=== PATIENT | male | born 1965 | race Caucasian/White ===

== ENCOUNTER 2016-11-05 11:50 | Emergency (ER) | payer OTHER ==
[2016-11-05] MEDS ORDERED: CLINDAMYCIN HCL 150 MG CAPSULE PO ONE (12:23)
[2016-11-05] MEDS ORDERED: BUPIVACAINE HCL 0.5 % INJ/PF 30 ML SDV INJ ONE (12:23)
[2016-11-05] MEDS ORDERED: OXYCODONE-ACETAMINOPHEN 5-325 MG TABLET PO ONE (12:23)
[2016-11-05] MEDS ORDERED: ONDANSETRON 4 MG TAB.RAPDIS PO ONE (12:29)
--- NOTE | 2016-11-05 12:30 | ER Document Report ---
HPI - HPI Patient complains to provider of: tooth ache Pain Level: 3 Context: He shouldn't is a 50-year-old male presents emergency room complaining of right tooth pain at 2:30. Patient states that this pain started last evening. Denies any fevers or chills. Denies any foul drainage or odor. Smoker. Has a history of dental abscess on the left side that required tooth extraction by Rohit. Patient states that he has an appointment December 05 with tenderness. - REPRODUCTIVE Reproductive: DENIES: : - DERM Skin Color: Normal Past Medical History - Social History Smoking Status: Current Every Day Smoker Family History: None Patient has suicidal ideation: No Patient has homicidal ideation: No - Past Medical History Cardiac Medical History: Reports: Hx Hypertension Renal/ Medical History: Denies: Hx Peritoneal Dialysis Past Surgical History: Reports: Hx Orthopedic Surgery - finger surgery Vertical Provider Document - CONSTITUTIONAL Agree With Documented VS: Yes Exam Limitations: No Limitations General Appearance: WD/WN, No Apparent Distress - INFECTION CONTROL TRAVEL OUTSIDE OF THE [place] IN LAST 30 DAYS: No - HEENT HEENT: Atraumatic, Normocephalic, PERRLA. negative: Pharyngeal Exudate, Pharyngeal Tenderness, Pharyngeal Erythema, Tympanic Membrane Red, Tympanic Membrane Bulging Mouth Diagram: 1 - Pain, evidence of mild drainage at the base of the tooth, abscess. Notes: No evidence of retropharyngeal or peritonsillar abscess - NECK Neck: Normal Inspection, Other - No evidence of Daniel angina - RESPIRATORY Respiratory: Breath Sounds Normal, No Respiratory Distress, Chest Non-Tender. negative: Rales, Rhonchi, Wheezing O2 Sat by Pulse Oximetry: 98 - CARDIOVASCULAR Cardiovascular: Regular Rate, Regular Rhythm, No Murmur Course - Re-evaluation Re-evalutation: 11/05/16 12:27 Patient is a 50-year-old male presents with dental abscess last night. Patient received 5 mL of Sensorcaine dental block with resolution of his symptoms. Abscess was drained using an 18-gauge needle with aspiration of 3cc of pus. Initiated on clindamycin given patient's allergy to penicillin and Bactrim. d/ w him indications to follow up with a dentist in 10 days. - Vital Signs Vital signs: Temp Pulse Resp BP Pulse Ox 98.2 F 76 18 161/95 H 98 11/05/16 11:56 11/05/16 11:56 11/05/16 11:56 11/05/16 11:56 11/05/16 11:56 Discharge - Discharge Clinical Impression: Toothache Condition: Good Disposition: HOME, SELF-CARE Instructions: Toothache (OM), Clindamycin (OM), Oral Narcotic Medication ([facility] ), [facility] Additional Instructions: [facility] [address] [place], [place] Tuesday mornings, by appointment [facility] [address] [place] [address] [facility] [place] [address] [facility] [address] [facility] [address] [email or web address] [address] [place] [address] Tuesday- 8:00am to 5:00 pm Will see patients from other [facility]. Charges based on income and family size and accepts Medicare, Medicaid, and Insurances Will pull molars [facility] [id number] Hours of Operation 8:00 am - 4:30 pm weekdays The following dental offices accept Medicaid: [facility] Dr. Ma Dr. Pisano Dr. Sena Dr. Archibald Pablo Rosa Lutsavage, and [facility] Dr. Banuelos ([place]) Dr. Valle ([place]) [facility] Drs. Larry and Jose Rafael ([place]) Dr. Cornell ([place]) [facility] Dr. Yen ([place]) Drs. Leyva and ([place]) Medicaid Care Line Prescriptions: Oxycodone HCl/Acetaminophen [Percocet 5-325 mg Tablet] 1 tab PO Q4HP PRN #15 tab PRN Reason: Clindamycin HCl 300 mg PO TID 10 Days Ondansetron HCl [Zofran 4 mg Tablet] 1 - 2 tab PO Q4H PRN #10 tablet PRN Reason: Forms: Elevated Blood Pressure, Return to Work Referrals: [facility] [NO LOCAL MD] - Follow up as needed
[2016-11-05 13:15] VITALS: BP 158/87
== END 2016-11-05 13:16 | disposition home or self-care (01) ==
LOC: ER 11:50
DX: K08.9 Disorder of teeth and supporting structures, unspecified (principal); F17.200 Nicotine dependence, unspecified, uncomplicated
CPT/HCPCS: 99282; S0119

== ENCOUNTER 2017-01-09 23:30 | Emergency (ER) | payer OTHER ==
[2017-01-10] MEDS ORDERED: LIDOCAINE 1% INJ-PF (10 MG/ML) 30 ML SDV INJ ONE (00:56)
[2017-01-10] MEDS ORDERED: CEFTRIAXONE INJ 1000 MG VIAL IV ONE (00:57)
[2017-01-10] MEDS ORDERED: NORMAL SALINE 1000 ML 1,000 ML IV ONE (00:58)
[2017-01-10] MEDS ORDERED: ACETAMINOPHEN 325 MG TABLET PO ONE (00:58)
--- NOTE | 2017-01-10 01:04 | ER Document Report ---
ED General - General Chief Complaint: Nausea/Vomiting Stated Complaint: BODY PAIN,NAUSEA Time Seen by Provider: 01/10/17 00:46 Notes: Patient is a 51-year-old male who presents with complaint of fever and some body aches. Some nausea. Vomiting. No diarrhea. Patient's is recent diagnosed with meningitis proximally 6 days ago. He is told if he ever developed a fever to come to the ER immediately. I did review her CSF cultures and it did not grow anything. She was eventually transferred to [facility]. She is currently there. And says that she has been diagnosed with a blood infection as well as a "brain infection. The exact source is not clear at this time. She is due to undergo an echocardiogram here soon. Patient denies any headache. No neck pain. No neck stiffness. He says he is sick because of eating what his neighbor cooks yesterday but he is 100% sure. He did not take any Tylenol or Motrin prior to arrival. He is not on blood thinners. He has no other complaints at this time. TRAVEL OUTSIDE OF THE [place] IN LAST 30 DAYS: No - Related Data Allergies/Adverse Reactions: Penicillins Allergy (Mild, Verified 07/14/16 10:34) Sulfa (Sulfonamide Antibiotics) Allergy (Mild, Verified 07/14/16 10:34) sulfamethoxazole [From Bactrim] Allergy (Verified 07/14/16 10:34) trimethoprim [From Bactrim] Allergy (Verified 07/14/16 10:34) Past Medical History - Social History Smoking Status: Never Smoker Frequency of alcohol use: None Drug Abuse: None Family History: None - Past Medical History Cardiac Medical History: Reports: Hx Hypertension Renal/ Medical History: Denies: Hx Peritoneal Dialysis Past Surgical History: Reports: Hx Orthopedic Surgery - finger surgery Review of Systems - Review of Systems Notes: My Normal Review Basic REVIEW OF SYSTEMS: CONSTITUTIONAL :fever EENT: Denies eye, ear, throat, or mouth pain or symptoms. Denies nasal or sinus congestion. CARDIOVASCULAR: Denies chest pain. RESPIRATORY: Denies cough, cold, or chest congestion. Denies shortness of breath, difficulty breathing, or wheezing. GASTROINTESTINAL: Denies abdominal pain. vomiting x1. Denies constipation. Last BM: GENITOURINARY: Denies difficulty urinating, painful urination, burning, frequency, or blood in urine. MUSCULOSKELETAL: Denies neck or back pain or joint pain or swelling. SKIN: Denies rash or skin lesions. HEMATOLOGIC : Denies easy bruising or bleeding. NEUROLOGICAL: Denies altered mental status or loss of consciousness. Denies headache. Denies weakness or paralysis or loss of use of either side. Denies problems with gait or speech. Denies sensory or motor loss. ALL OTHER SYSTEMS REVIEWED AND NEGATIVE. Physical Exam - Vital signs Vitals: Temp Pulse Resp BP Pulse Ox 101.0 F H 107 H 21 H 165/88 H 96 01/09/17 23:48 01/09/17 23:48 01/09/17 23:48 01/09/17 23:48 01/09/17 23:48 - Notes Notes: General Appearance: Well nourished, alert, cooperative, no acute distress, no obvious discomfort. Vitals: reviewed, See vital signs table. Head: no swelling or tenderness to the head Eyes: PERRL, EOMI, Conjuctiva clear Mouth: No decreasd moisture Throat: No tonsillar inflammation, No airway obstruction, No lymphadenopathy Neck: Supple, no neck tenderness, No thyromegaly Lungs: No wheezing, No rales, No rhonci, No accessory muscle use, good air exchange bilaterally. Heart: Normal rate, Regular rythm, No murmur, no rub Abdomen: Normal BS, soft, No rigidity, No abdominal tenderness, No guarding, no rebound, no abdominal masses, no organomegaly Extremities: strength 5/5 in all extremities, good pulses in all extremities, no swelling or tenderness in the extremities, no edema. Skin: warm, dry, appropriate color, no rash Neuro: speech clear, oriented x 3, normal affect, responds appropriately to questions. Course - Vital Signs Vital signs: Temp Pulse Resp BP Pulse Ox 98.0 F 68 18 132/60 H 97 01/10/17 04:26 01/10/17 04:26 01/10/17 04:26 01/10/17 04:26 01/10/17 04:26 - Laboratory Result Diagrams: 01/10/17 01:10 01/10/17 01:47 Laboratory results interpreted by me: 01/10/17 01/10/17 01:10 01:10 WBC 13.5 H Seg Neuts % (Manual) 88 H Lymphocytes % (Manual) 2 L Abs Neuts (Manual) 12.3 H Abs Lymphs (Manual) 0.3 L Lactic Acid 2.8 H - Transfer of Care Notes: 01/10/17 05:08 Patient's fever is intermittent. When he has a fever is very sweaty and looks unwell. When fever is gone he looks improved. Lactic acid is elevated. Currently do not have a source for the fever. I did do a lumbar puncture being that his was recently diagnosed with meningitis. Fortunately his lumbar puncture is negative. My concern is that the patient's does have bacteremia which they think led to the meningitis. At this time I think is appropriate to admit him for observation to make sure his blood cultures did not grow out any significant bacteremia to make sure that he continues to improve. I did speak with the hospitalist request we also start him on doxycycline and send Byers spotted fever titers. He denies recent tick bite. He is agreeable to this. Patient's chest x-ray is negative. Dictation of this chart was performed using voice recognition software; therefore, there may be some unintended grammatical errors. Procedures - Lumbar Puncture Lumbar puncture Consent obtained: Yes Patient position: Sitting Needle size: 22 Lumbar puncture location: L3, L4 Anesthetic type: 1% Lidocaine mL's of anesthetic: 4 Amount/type of drainage: clear 7mls Number of attempts: 1 Complications: No Discharge - Discharge Clinical Impression: Elevated lactic acid level Fever Qualifiers: Fever type: unspecified Qualified Code(s): R50.9 - Fever, unspecified Condition: Stable Disposition: ADMITTED OBSERVATION Admitting Provider: Hospitalist Unit Admitted: Telemetry
[2017-01-10 01:35] LABS: HEMATOCRIT 46.4 % (37.9-51.0); HEMOGLOBIN 15.1 g/dL (13.5-17.0); HGB HCT DIFFERENCE -1.1; MEAN CORPUSCULAR HGB CONC 32.5 g/dL (32.0-36.0); MEAN CORPUSCULAR VOLUME 86 fl (80-97); RED BLOOD COUNT 5.39 10^6/uL (4.35-5.55); RED CELL DISTRIBUTION WIDTH 13.5 % (11.5-14.0); WHITE BLOOD COUNT 13.5 10^3/uL (4.0-10.5)
[2017-01-10 02:00] LABS: BAND NEUTROPHILS % (MANUAL) 3 % (3-5); BASOPHILS % (MANUAL) 1 % (0-2); EOSINOPHILS % (MANUAL) 1 % (0-6); LYMPHOCYTES % (MANUAL) 2 % (13-45); TOTAL CELLS COUNTED 100
[2017-01-10 02:01] LABS: TOXIC GRANULATION SLIGHT
[2017-01-10 02:12] LABS: RBC MORPHOLOGY COMMENT NORMO-CYTIC/CHROMIC
[2017-01-10 02:14] LABS: ALANINE AMINOTRANSFERASE 54 U/L (21-72); ALBUMIN 4.3 g/dL (3.5-5.0); ALKALINE PHOSPHATASE 67 U/L (38-126); ANION GAP 13 (5-19); ASPARTATE AMINO TRANSFERASE 37 U/L (17-59); BILIRUBIN,DIRECT 0.3 mg/dL (0.0-0.4); BILIRUBIN,TOTAL 0.5 mg/dL (0.2-1.3); BLOOD UREA NITROGEN 15 mg/dL (7-20); CALCIUM 9.3 mg/dL (8.4-10.2); CARBON DIOXIDE 22 mmol/L (22-30); CHLORIDE 106 mmol/L (98-107); CREATININE RESULT 0.89 mg/dL (0.52-1.25); GLUCOSE 106 mg/dL (75-110); POTASSIUM 4.2 mmol/L (3.6-5.0); SODIUM 140.8 mmol/L (137-145)
--- NOTE | 2017-01-10 02:25 | RADIOLOGY REPORT (SQ) ---
EXAM DESCRIPTION: CHEST SINGLE VIEW COMPLETED DATE/TIME: 01/10/2017 2:10 am REASON FOR STUDY: fever COMPARISON: 3.9.16 EXAM PARAMETERS: NUMBER OF VIEWS: One view. TECHNIQUE: Single frontal radiographic view of the chest acquired. RADIATION DOSE: NA LIMITATIONS: None. FINDINGS: LUNGS AND PLEURA: No opacities, masses or pneumothorax. No pleural effusion. Mild interst itial markings. MEDIASTINUM AND HILAR STRUCTURES: No masses. Contour normal. HEART AND VASCULAR STRUCTURES: Heart normal in size. Normal vasculature. BONES: No acute findings. HARDWARE: None in the chest. OTHER: No other significant finding. IMPRESSION: NO ACUTE RADIOGRAPHIC FINDING IN THE CHEST. TECHNICAL DOCUMENTATION: JOB ID: [id number]
[2017-01-10 03:05] LABS: GLUCOSE,CSF 69 mg/dL (40-70)
[2017-01-10 03:15] LABS: APPEARANCE ALL TUBES CLEAR; RBC DILUENT USED NONE USED; RBC DILUTION FACTOR 1; RBC SIDE 1 0; RBC SIDE 2 0; TOTAL RBC SQUARES COUNTED 225
[2017-01-10 03:16] LABS: WHITE BLOOD CELL,CSF 2 /uL (0-5)
[2017-01-10 05:05] LABS: APPEARANCE,URINE CLEAR; BILIRUBIN,URINE NEGATIVE (NEGATIVE); GLUCOSE, URINE NEGATIVE (NEGATIVE); KETONES,URINE NEGATIVE (NEGATIVE); LEUKOCYTE ESTERASE,URINE NEGATIVE (NEGATIVE); NITRITE,URINE NEGATIVE (NEGATIVE); PROTEIN,URINE NEGATIVE (NEGATIVE); UROBILINOGEN,URINE NEGATIVE mg/dL (<2.0)
[2017-01-10] MEDS ORDERED: ONDANSETRON HCL INJ/PF 4 MG/2 ML SDV IV ONE (07:04)
[2017-01-10] MEDS ORDERED: ONDANSETRON HCL INJ/PF 4 MG/2 ML SDV IV PRN (07:41)
[2017-01-10] MEDS ORDERED: NORMAL SALINE 1000 ML 1,000 ML IV PRN (07:41)
[2017-01-10] MEDS ORDERED: ACETAMINOPHEN 325 MG TABLET PO PRN (07:41)
[2017-01-10 09:04] VITALS: BP 155/69
[2017-01-10] MEDS ORDERED: LEVOFLOXACIN 750 MG/D5W RTU 150 ML IV SCH (10:00)
[2017-01-10] MEDS ORDERED: ENOXAPARIN SODIUM INJ 40 MG/0.4 ML DISP.SYRIN SUBCUT SCH (10:00)
[2017-01-10] MEDS ORDERED: CEFTRIAXONE 1 GM/D5W RTU 50 ML IV SCH (10:00)
--- NOTE | 2017-01-10 12:44 | H&P/Discharge Summary ---
Discharge Summary Admission Date/PCP: 01/10/2017/[facility] Discharge Date: 01/10/17 Resuscitation Status: Full Code - Discharge Diagnosis (1) Fever Is this a current diagnosis for this admission?: Yes (2) Hypertension Is this a current diagnosis for this admission?: Yes Allergies/Adverse Reactions: Penicillins Allergy (Mild, Verified 07/14/16 10:34) Sulfa (Sulfonamide Antibiotics) Allergy (Mild, Verified 07/14/16 10:34) sulfamethoxazole [From Bactrim] Allergy (Verified 07/14/16 10:34) trimethoprim [From Bactrim] Allergy (Verified 07/14/16 10:34) Discharge Diet: Regular Discharge Activity: Activity As Tolerated History of Present Illness Patient complains of: Fever History of Present Illness: ROULA ZELAYA is a 51 year old male presents to the emergency department with fever. He was concerned about the fever since his has been recently diagnosed with meningitis. Since having negative lumbar puncture in the emergency department he is no longer concerned and request to be discharged from the emergency department as soon as I walked in the room to evaluate him. Patient states that he has been feeling nauseous since eating undercooked food yesterday and he thinks he may just have "food poisoning". He denies abdominal pain, vomiting, cough, shortness of breath, headache, photophobia. He is requesting a note to go back to work tomorrow. I advised him that I would like to treat him with empiric antibiotic course for fever. He stated he did not want a prescription for Levaquin because this was too expensive and he had no insurance. He is allergic to penicillin and sulfa medication. He was given prescription for doxycycline. Past Medical History Cardiac Medical History: Reports: Hypertension Past Surgical History Past Surgical History: Reports: Orthopedic Surgery - finger surgery Social History Information Source: Patient Lives with: Family Smoking Status: Never Smoker Frequency of Alcohol Use: None Hx Recreational Drug Use: No Hx Prescription Drug Abuse: No - Advance Directive Resuscitation Status: Full Code Family History Family History: None Parental Family History Reviewed: Yes Children Family History Reviewed: Yes Sibling(s) Family History Reviewed.: Yes Review of Systems Constitutional: PRESENT: chills, fatigue, fever(s). ABSENT: headache(s), weight gain, weight loss Eyes: ABSENT: visual disturbances Ears: ABSENT: hearing changes Cardiovascular: ABSENT: chest pain, dyspnea on exertion, edema, orthropnea, palpitations Respiratory: ABSENT: cough, hemoptysis Gastrointestinal: PRESENT: nausea. ABSENT: abdominal pain, constipation, diarrhea, hematemesis, hematochezia, vomiting Genitourinary: ABSENT: dysuria, hematuria Musculoskeletal: ABSENT: joint swelling Integumentary: ABSENT: rash, wounds Neurological: ABSENT: abnormal gait, abnormal speech, confusion, dizziness, focal weakness, syncope Psychiatric: ABSENT: anxiety, depression, homidical ideation, suicidal ideation Endocrine: ABSENT: cold intolerance, heat intolerance, polydipsia, polyuria Hematologic/Lymphatic: ABSENT: easy bleeding, easy bruising Physical Exam Vital Signs: Temp Pulse Resp BP Pulse Ox 102.2 F H 77 18 155/69 H 94 01/10/17 09:03 01/10/17 09:03 01/10/17 09:03 01/10/17 09:03 01/10/17 09:03 Intake & Output 01/09/17 01/10/17 01/11/17 06:59 06:59 06:59 Weight 107.7 kg PHYSICAL EXAM: GENERAL: Appears well, no acute distress HEENT: Normocephalic, no scleral icterus, conjunctiva clear, EOEM intact, PERRLA , moist mucous membranes NECK: trachea midline, no thyromegally RESPIRATORY: Clear to auscultation, no wheezes/rhonchi CARDIAC: Regular rate and rhythm, no murmur/aracelis/rub ABDOMEN: Soft, no distension, no tenderness, no guarding, normal bowel sounds, negative Rizzo sign RECTAL: deferred : deferred EXTREMITIES: No edema, cyanosis, clubbing MUSCULOSKELETAL: No joint swelling or deformity VASCULAR: normal peripheral pulses NEUROLOGIC: Alert, oriented to person/place/time, normal speech, cranial nerves grossly intact, 5/5 strength in all extremities, tactile sensation intact in all extremities SKIN: No rash, no wounds, no worrisome skin lesions PSYCHIATRIC: Normal mood, normal affect Results Laboratory Results: 01/10/17 01:10 01/10/17 01:47 01/10/17 01/10/17 01/10/17 01:10 01:10 01:10 WBC 13.5 H RBC 5.39 Hgb 15.1 Hct 46.4 MCV 86 MCH 28.0 MCHC 32.5 RDW 13.5 Plt Count 166 Seg Neutrophils % Not Reportable Lymphocytes % Not Reportable Monocytes % Not Reportable Eosinophils % Not Reportable Basophils % Not Reportable Absolute Neutrophils Not Reportable Absolute Lymphocytes Not Reportable Absolute Monocytes Not Reportable Absolute Eosinophils Not Reportable Absolute Basophils Not Reportable Sodium Cancelled Potassium Cancelled Chloride Cancelled Carbon Dioxide Cancelled Anion Gap Cancelled BUN Cancelled Creatinine Cancelled Est GFR ( Amer) Cancelled Est GFR (Non-Af Amer) Cancelled Glucose Cancelled Lactic Acid 2.8 H Calcium Cancelled Total Bilirubin Cancelled AST Cancelled ALT Cancelled Alkaline Phosphatase Cancelled Total Protein Cancelled Albumin Cancelled Urine Color Urine Appearance Urine pH Ur Specific [place]ba Urine Protein Urine Glucose (UA) Urine Ketones Urine Blood Urine Nitrite Ur Leukocyte Esterase Urine WBC (Auto) Urine RBC (Auto) Fluid Tube Number CSF Volume CSF Appearance CSF Color CSF WBC CSF RBC CSF Glucose CSF Total Protein 01/10/17 01/10/17 01/10/17 01:47 02:24 02:24 WBC RBC Hgb Hct MCV MCH MCHC RDW Plt Count Seg Neutrophils % Lymphocytes % Monocytes % Eosinophils % Basophils % Absolute Neutrophils Absolute Lymphocytes Absolute Monocytes Absolute Eosinophils Absolute Basophils Sodium 140.8 Potassium 4.2 Chloride 106 Carbon Dioxide 22 Anion Gap 13 BUN 15 Creatinine 0.89 Est GFR ( Amer) > 60 Est GFR (Non-Af Amer) > 60 Glucose 106 Lactic Acid Calcium 9.3 Total Bilirubin 0.5 AST 37 ALT 54 Alkaline Phosphatase 67 Total Protein 7.0 Albumin 4.3 Urine Color Urine Appearance Urine pH Ur Specific [place] Urine Protein Urine Glucose (UA) Urine Ketones Urine Blood Urine Nitrite Ur Leukocyte Esterase Urine WBC (Auto) Urine RBC (Auto) Fluid Tube Number 4 CSF Volume 5.0 CSF Appearance CLEAR CSF Color COLORLESS CSF WBC 2 CSF RBC 0 CSF Glucose 69 CSF Total Protein 49 01/10/17 01/10/17 04:15 05:30 WBC RBC Hgb Hct MCV MCH MCHC RDW Plt Count Seg Neutrophils % Lymphocytes % Monocytes % Eosinophils % Basophils % Absolute Neutrophils Absolute Lymphocytes Absolute Monocytes Absolute Eosinophils Absolute Basophils Sodium Potassium Chloride Carbon Dioxide Anion Gap BUN Creatinine Est GFR ( Amer) Est GFR (Non-Af Amer) Glucose Lactic Acid 2.5 H Calcium Total Bilirubin AST ALT Alkaline Phosphatase Total Protein Albumin Urine Color YELLOW Urine Appearance CLEAR Urine pH 7.0 Ur Specific [place]ba 1.020 Urine Protein NEGATIVE Urine Glucose (UA) NEGATIVE Urine Ketones NEGATIVE Urine Blood NEGATIVE Urine Nitrite NEGATIVE Ur Leukocyte Esterase NEGATIVE Urine WBC (Auto) 1 Urine RBC (Auto) 0 Fluid Tube Number CSF Volume CSF Appearance CSF Color CSF WBC CSF RBC CSF Glucose CSF Total Protein Labs- Last Values WBC 13.5 10^3/uL (4.0-10.5) H 01/10/17 01:10 RBC 5.39 10^6/uL (4.35-5.55) 01/10/17 01:10 Hgb 15.1 g/dL (13.5-17.0) 01/10/17 01:10 Hct 46.4 % (37.9-51.0) 01/10/17 01:10 MCV 86 fl (80-97) 01/10/17 01:10 MCH 28.0 pg (27.0-33.4) 01/10/17 01:10 MCHC 32.5 g/dL (32.0-36.0) 01/10/17 01:10 RDW 13.5 % (11.5-14.0) 01/10/17 01:10 Plt Count 166 10^3/uL (150-450) 01/10/17 01:10 Total Counted 100 01/10/17 01:10 Seg Neutrophils % Not Reportable 01/10/17 01:10 Seg Neuts % (Manual) 88 % (42-78) H 01/10/17 01:10 Band Neutrophils % 3 % (3-5) 01/10/17 01:10 Lymphocytes % Not Reportable 01/10/17 01:10 Lymphocytes % (Manual) 2 % (13-45) L 01/10/17 01:10 Monocytes % Not Reportable 01/10/17 01:10 Monocytes % (Manual) 5 % (3-13) 01/10/17 01:10 Eosinophils % Not Reportable 01/10/17 01:10 Eosinophils % (Manual) 1 % (0-6) 01/10/17 01:10 Basophils % Not Reportable 01/10/17 01:10 Basophils % (Manual) 1 % (0-2) 01/10/17 01:10 Absolute Neutrophils Not Reportable 01/10/17 01:10 Abs Neuts (Manual) 12.3 10^3/uL (1.7-8.2) H 01/10/17 01:10 Absolute Lymphocytes Not Reportable 01/10/17 01:10 Abs Lymphs (Manual) 0.3 10^3/uL (0.5-4.7) L 01/10/17 01:10 Absolute Monocytes Not Reportable 01/10/17 01:10 Abs Monocytes (Manual) 0.7 10^3/uL (0.1-1.4) 01/10/17 01:10 Absolute Eosinophils Not Reportable 01/10/17 01:10 Absolute Eos (Manual) 0.1 10^3/uL (0.0-0.6) 01/10/17 01:10 Absolute Basophils Not Reportable 01/10/17 01:10 Abs Basophils (Manual) 0.1 10^3/uL (0.0-0.2) 01/10/17 01:10 Toxic Granulation SLIGHT 01/10/17 01:10 Platelet Comment ADEQUATE 01/10/17 01:10 RBC Morph Comment NORMO-CYTIC/CHROMIC 01/10/17 01:10 Sodium 140.8 mmol/L (137-145) 01/10/17 01:47 Potassium 4.2 mmol/L (3.6-5.0) 01/10/17 01:47 Chloride 106 mmol/L (98-107) 01/10/17 01:47 Carbon Dioxide 22 mmol/L (22-30) 01/10/17 01:47 Anion Gap 13 (5-19) 01/10/17 01:47 BUN 15 mg/dL (7-20) 01/10/17 01:47 Creatinine 0.89 mg/dL (0.52-1.25) 01/10/17 01:47 Est GFR ( Amer) > 60 (>60) 01/10/17 01:47 Est GFR (Non-Af Amer) > 60 (>60) 01/10/17 01:47 Glucose 106 mg/dL (75-110) 01/10/17 01:47 Lactic Acid 2.5 mmol/L (0.7-2.1) H 01/10/17 05:30 Calcium 9.3 mg/dL (8.4-10.2) 01/10/17 01:47 Total Bilirubin 0.5 mg/dL (0.2-1.3) 01/10/17 01:47 Direct Bilirubin 0.3 mg/dL (0.0-0.4) 01/10/17 01:47 Indirect Bilirubin Not Reportable 01/10/17 01:47 Neonat Total Bilirubin Not Reportable 01/10/17 01:47 AST 37 U/L (17-59) 01/10/17 01:47 ALT 54 U/L (21-72) 01/10/17 01:47 Alkaline Phosphatase 67 U/L (38-126) 01/10/17 01:47 Total Protein 7.0 g/dL (6.3-8.2) 01/10/17 01:47 Albumin 4.3 g/dL (3.5-5.0) 01/10/17 01:47 Urine Color YELLOW 01/10/17 04:15 Urine Appearance CLEAR 01/10/17 04:15 Urine pH 7.0 (5.0-9.0) 01/10/17 04:15 Ur Specific Elba 1.020 01/10/17 04:15 Urine Protein NEGATIVE mg/dL (NEGATIVE) 01/10/17 04:15 Urine Glucose (UA) NEGATIVE mg/dL (NEGATIVE) 01/10/17 04:15 Urine Ketones NEGATIVE mg/dL (NEGATIVE) 01/10/17 04:15 Urine Blood NEGATIVE (NEGATIVE) 01/10/17 04:15 Urine Nitrite NEGATIVE (NEGATIVE) 01/10/17 04:15 Urine Bilirubin NEGATIVE (NEGATIVE) 01/10/17 04:15 Urine Urobilinogen NEGATIVE mg/dL (<2.0) 01/10/17 04:15 Ur Leukocyte Esterase NEGATIVE (NEGATIVE) 01/10/17 04:15 Urine WBC (Auto) 1 /HPF 01/10/17 04:15 Urine RBC (Auto) 0 /HPF 01/10/17 04:15 Squamous Epi Cells Auto <1 /HPF 01/10/17 04:15 Urine Mucus (Auto) RARE /LPF 01/10/17 04:15 Urine Ascorbic Acid NEGATIVE (NEGATIVE) 01/10/17 04:15 Fluid Tube Number 4 01/10/17 02:24 CSF Volume 5.0 CC 01/10/17 02:24 CSF Appearance CLEAR 01/10/17 02:24 CSF Color COLORLESS 01/10/17 02:24 CSF WBC 2 /uL (0-5) 01/10/17 02:24 CSF RBC 0 /uL (0-800) 01/10/17 02:24 CSF Glucose 69 mg/dL (40-70) 01/10/17 02:24 CSF Total Protein 49 mg/dL (12-60) 01/10/17 02:24 Impressions: Chest X-Ray 01/10/17 00:46 IMPRESSION: NO ACUTE RADIOGRAPHIC FINDING IN THE CHEST. Qualifiers PATEINT BEING DISCHARGED WITH ANY OF THE FOLLOWING DIAGNOSIS?: No Assessment & Plan - Time Time Spent: 50 to 70 Minutes Anticipated dischagre: Home
[2017-01-12 07:27] LABS: ROCKY MTN SPOTTED FEV IGG EIA Negative (Negative)
== END 2017-01-10 09:02 | disposition admitted as inpatient to this hospital (09) ==
LOC: ER 23:30 → UNDOADMOB 01-10 06:12 → EH 01-10 06:12 → OBSVTOIN 01-10 07:41 → INTOOBSV 01-10 07:41 → UNDODISIN 01-10 08:40
PROC: 009U3ZX Drainage of Spinal Canal, Percutaneous Approach, Diagnostic (ICD-10-PCS; principal; 2017-01-09)
DX: R50.9 Fever, unspecified (principal); R11.2 Nausea with vomiting, unspecified; R74.0 Nonspecific elevation of levels of transaminase and lactic acid dehydrogenase [LDH]; I10 Essential (primary) hypertension; Z20.9 Contact with and (suspected) exposure to unspecified communicable disease; Z88.0 Allergy status to penicillin; Z88.2 Allergy status to sulfonamides; Z88.1 Allergy status to other antibiotic agents
CPT/HCPCS: 99283; 96365; 36415; 87040; 87070; 87086; 87205; 85025; 89050; 82945; 84157; 87077; 80053; 81001; 86757 ×2; 87186; 83605; 71010; 62270; J3490; J0696; J2405; J7030

== ENCOUNTER 2017-12-09 16:28 | Emergency (ER) | payer SELFPAY ==
[2017-12-09 16:48] VITALS: BP 153/78
[2017-12-09] MEDS ORDERED: ACETAMINOPHEN 325 MG TABLET PO ONE (17:21)
--- NOTE | 2017-12-09 17:23 | ER Document Report ---
ED Medical Screen (RME) - General Chief Complaint: Insect Bite Stated Complaint: POSSIBLE BUG BITE Time Seen by Provider: 12/09/17 17:18 Notes: RAPID MEDICAL EVALUATION DISCLOSURE I have seen this patient as part of a Rapid Medical Evaluation and, if applicable, placed any initially appropriate orders. The patient will be seen and fully evaluated, including a full history and physical exam, by a provider ( in Main ED or Fast Track) when a room becomes available. 52-year-old male here with complaints of a bug bite to his right upper extremity 2 days ago that has progressively worsened with respect to size and redness of the skin. Has not taken anything for the symptoms. No fevers or chills. EXAM Erythema to just proximal of the antecubital fossa Small punctate wound in the middle of the erythema TRAVEL OUTSIDE OF THE [place] IN LAST 30 DAYS: No - Related Data Allergies/Adverse Reactions: Penicillins Allergy (Mild, Verified 12/09/17 16:30) Sulfa (Sulfonamide Antibiotics) Allergy (Mild, Verified 12/09/17 16:30) sulfamethoxazole [From Bactrim] Allergy (Verified 12/09/17 16:30) trimethoprim [From Bactrim] Allergy (Verified 12/09/17 16:30) Past Medical History - Social History Chew tobacco use (# tins/day): No Frequency of alcohol use: Occasional Drug Abuse: None - Past Medical History Cardiac Medical History: Reports: Hx Hypertension Renal/ Medical History: Denies: Hx Peritoneal Dialysis Past Surgical History: Reports: Hx Orthopedic Surgery - finger surgery Physical Exam - Vital signs Vitals: Temp Pulse Resp BP Pulse Ox 98 F 73 18 153/78 H 97 12/09/17 16:46 12/09/17 16:46 12/09/17 16:46 12/09/17 16:46 12/09/17 16:46 Course - Vital Signs Vital signs: Temp Pulse Resp BP Pulse Ox 98 F 73 18 153/78 H 97 12/09/17 16:46 12/09/17 16:46 12/09/17 16:46 12/09/17 16:46 12/09/17 16:46
[2017-12-09] MEDS ORDERED: CLINDAMYCIN HCL 150 MG CAPSULE PO ONE (18:22)
--- NOTE | 2017-12-09 18:28 | ER Document Report ---
ED Skin Rash/Insect Bite/Abscs - General Chief Complaint: Insect Bite Stated Complaint: POSSIBLE BUG BITE Time Seen by Provider: 12/09/17 17:18 Mode of Arrival: Ambulatory Information source: Patient Notes: 52-year-old male in the ED for complaint of a bug bite to his right upper extremity 2 days ago that is become progressively worse more red and tender. He denies any fevers or chills. He states that his boss cut it with a razor superficially. There is no signs of infection to the actual razor cut. TRAVEL OUTSIDE OF THE [place] IN LAST 30 DAYS: No - HPI Patient complains to provider of: Tender/swollen area - 2 days Onset: Other Onset/Duration: Gradual - 2 days ago Quality of pain: Pressure Severity: Moderate Pain Level: 2 Skin Character: Erythema, Swelling, Tenderness Quality of rash: Itchy Identify cause: Yes - States a bug bite Exacerbated by: Movement Relieved by: Denies Similar symptoms previously: No Recently seen / treated by doctor: No - Related Data Allergies/Adverse Reactions: Penicillins Allergy (Mild, Verified 12/09/17 16:30) Sulfa (Sulfonamide Antibiotics) Allergy (Mild, Verified 12/09/17 16:30) sulfamethoxazole [From Bactrim] Allergy (Verified 12/09/17 16:30) trimethoprim [From Bactrim] Allergy (Verified 12/09/17 16:30) Past Medical History - General Information source: Patient - Social History Smoking Status: Current Every Day Smoker Cigarette use (# per day): Yes - Half pack a day Chew tobacco use (# tins/day): No Smoking Education Provided: Yes - 4 minutes Frequency of alcohol use: Occasional Drug Abuse: None Occupation: Maintenance Lives with: Family Family History: None Patient has suicidal ideation: No Patient has homicidal ideation: No - Past Medical History Cardiac Medical History: Reports: Hx Hypertension Pulmonary Medical History: Reports: None EENT Medical History: Reports: None Neurological Medical History: Reports: None Endocrine Medical History: Reports: None Renal/ Medical History: Reports: None Malignancy Medical History: Reports None GI Medical History: Reports: None Musculoskeltal Medical History: Reports Hx Musculoskeletal Trauma - Amputation of the tip of his finger by a printing press Skin Medical History: Reports None Psychiatric Medical History: Reports: None Traumatic Medical History: Reports: None Infectious Medical History: Reports: None Past Surgical History: Reports: Hx Orthopedic Surgery - finger surgery Review of Systems - Review of Systems Constitutional: No symptoms reported EENT: No symptoms reported Cardiovascular: No symptoms reported Respiratory: No symptoms reported Gastrointestinal: No symptoms reported Genitourinary: No symptoms reported Male Genitourinary: No symptoms reported Musculoskeletal: No symptoms reported Skin: Other - Cellulitis to an insect bite to the right upper arm Hematologic/Lymphatic: No symptoms reported Neurological/Psychological: No symptoms reported -: Yes All other systems reviewed and negative Physical Exam - Vital signs Vitals: Temp Pulse Resp BP Pulse Ox 98 F 73 18 153/78 H 97 12/09/17 16:46 12/09/17 16:46 12/09/17 16:46 12/09/17 16:46 12/09/17 16:46 Interpretation: Normal - General General appearance: Appears well, Alert - HEENT Head: Normocephalic, Atraumatic Eyes: Normal Pupils: PERRL - Respiratory Respiratory status: No respiratory distress Chest status: Nontender Breath sounds: Normal Chest palpation: Normal - Cardiovascular Rhythm: Regular Heart sounds: Normal auscultation Murmur: No - Abdominal Inspection: Normal Distension: No distension Bowel sounds: Normal Tenderness: Nontender Organomegaly: No organomegaly - Back Back: Normal, Nontender - Extremities General upper extremity: Normal inspection, Nontender, Normal color, Normal ROM , Normal temperature General lower extremity: Normal inspection, Nontender, Normal color, Normal ROM , Normal temperature, Normal weight bearing. No: Dillon's sign - Neurological Neuro grossly intact: Yes Cognition: Normal Orientation: AAOx4 Anita Coma Scale Eye Opening: Spontaneous Warren Coma Scale Verbal: Oriented Anita Coma Scale Motor: Obeys Commands Warren Coma Scale Total: 15 Speech: Normal Motor strength normal: LUE, RUE, LLE, RLE Sensory: Normal - Psychological Associated symptoms: Normal affect, Normal mood - Skin Skin Temperature: Warm Skin Moisture: Dry Skin Color: Normal Skin irregularity: Erythema Location of irregularity: Extremities - Right upper arm Character of irregularity: Erythematous Irregularity with: Swelling, Tenderness, Warmth, Thickening, Inflammation Course - Re-evaluation Re-evalutation: 12/09/17 18:35 Arm cleaned well with ChloraPrep, a 18-gauge needle was used to remove the scab from the right upper arm, then punctured the area to ensure no purulent drainage. No purulent drainage return. Wound culture sent of the blood return from the cellulitic area. Patient was given instructions on Epson salt soaks and clindamycin. Patient to return to the ED immediately for any redness swelling or pain. Patient instructed to take antibiotics until completed. Patient verbalized understanding of instructions and agreement with treatment plan. Bacitracin and Band-Aid applied to the area. - Vital Signs Vital signs: Temp Pulse Resp BP Pulse Ox 98 F 73 18 153/78 H 97 12/09/17 16:46 12/09/17 16:46 12/09/17 16:46 12/09/17 16:46 12/09/17 16:46 Discharge - Discharge Clinical Impression: Cellulitis of right upper arm Condition: Stable Disposition: HOME, SELF-CARE Instructions: Family Physicians / Practices Additional Instructions: CELLULITIS: You have an infection of your skin and underlying soft tissues called cellulitis. This is due to bacteria, which can enter through any break in the skin, or even through an irritated hair follicle. Untreated, cellulitis will usually worsen. Antibiotics are required. Usually, warm packs or warm soaks, and elevation of the infected area are recommended. You should start getting better within 24 to 36 hours. Most infections respond quickly to the right medication. Follow-up care is important, however, to check for abscess (boil) formation, unsuspected foreign body, or resistant infection. If you develop fever, chills, or if the area of infection is becoming rapidly more swollen or painful, call the doctor at once. CLINDAMYCIN: You have been given a prescription for the antibiotic clindamycin. It is often prescribed for infections in the mouth, such as dental infections or abscesses, and for skin infections due to MRSA. It's important that you take all the medication, unless instructed otherwise by your physician. Failure to complete the entire course can result in relapse of your condition. Common side effects of antibiotics include nausea, intestinal cramping, or diarrhea. Women may develop vaginal yeast infections, and babies can get yeast (thrush) in the mouth following the use of antibiotics. Contact your physician if you develop significant side effects from this medication. Allergy to this antibiotic can result in hives, wheezing, faintness, or itching. If symptoms of allergy occur, stop the medication and call the doctor. Epsom Salt Soaks Soak the wound area in a container of warm epsom salt water. If you can't get the wound area into a bucket or gray, use a folded towel soaked in the epsom salt solution and apply to the area. Use clean hot tap water (about the temperature of a very warm bath), mixing in about one (1) teaspoon for every pint of water. Two gallon --> 16 teaspoons Epsom Salts One gallon --> 8 teaspoons Epsom Salts Two quarts --> 4 teaspoons Epsom Salts One quart --> 2 teaspoons Epsom Salts Soak the wound for about 20 minutes while gently moving it around in the water. Repeat this four (4) times a day. Acetaminophen Acetaminophen may be taken for pain relief or fever control. It's much safer than aspirin, offering a wider range of "safe" dosages. It is safe during . Some brand names are Tylenol, Panadol, Datril, Anacin 3, Tempra, and Liquiprin. Acetaminophen can be repeated every four hours. The following are maximum recommended dosages: WEIGHT Dose Drops Elixir Chewable( 80mg) (LBS.) drprs=droppers tsp=teaspoon 6 40 mg .4 ml (1/2) 6-11 80 mg .8 ml (full) 1/2 tsp 1 tab 12-16 120 mg 1 1/2 drprs 3/4 tsp 1 1/2 tabs 17-23 160 mg 2 drprs 1 tsp 2 tabs 24-30 240 mg 3 drprs 1 1/2 tsp 3 tabs 30-35 320 mg 2 tsp 4 tabs 36-41 360 mg 2 1/4 tsp 4 1 /2 tabs 42-47 400 mg 2 1/2 tsp 5 tabs 48-53 480 mg 3 tsp 6 tabs 54-59 520 mg 3 1/4 tsp 6 1 /2 tabs 60-64 560 mg 3 1/2 tsp 7 tabs 65-70 600 mg 3 3/4 tsp 7 1 /2 tabs 71-76 640 mg 4 tsp 8 tabs 77-82 720 mg 4 1/2 tsp 9 tabs 83-88 800 mg 5 tsp 10 tabs >89 pounds or adults 650 mg to 900 mg Acetaminophen can be repeated every four hours. Maximum daily dose not to exceed 4000 mg. These maximum recommended dosages are slightly higher than the dosages written on the product container, but these dosages are very safe and well below the toxic dosage for acetaminophen. FOLLOW-UP CARE: If you have been referred to a physician for follow-up care, call the physician s office for an appointment as you were instructed or within the next two days. If you experience worsening or a significant change in your symptoms, notify the physician immediately or return to the Emergency Department at any time for re-evaluation. Prescriptions: Clindamycin HCl 300 mg PO Q6 #28 capsule Forms: Elevated Blood Pressure, Smoking Cessation Education, Return to Work
== END 2017-12-09 18:40 | disposition home or self-care (01) ==
LOC: ER 16:28
PROC: HZ31ZZZ Individual Counseling for Substance Abuse Treatment, Behavioral (ICD-10-PCS; principal; 2017-12-09)
PROC: 0H9BXZZ Drainage of Right Upper Arm Skin, External Approach (ICD-10-PCS; 2017-12-09)
DX: L03.113 Cellulitis of right upper limb (principal); S40.861A Insect bite (nonvenomous) of right upper arm, initial encounter; W57.XXXA Bitten or stung by nonvenomous insect and other nonvenomous arthropods, initial encounter; F17.210 Nicotine dependence, cigarettes, uncomplicated
CPT/HCPCS: 87070; 87205; 99282; 99406